=== PATIENT | female | born 1965 | race Caucasian/White ===

== ENCOUNTER 2020-04-27 12:07 | Emergency (ER) | payer OTHER | END 2020-04-27 13:29 | disposition home or self-care (01) | LOC: JVIRT 12:07 | DX: Z03.818 Encounter for observation for suspected exposure to other biological agents ruled out (principal) | CPT/HCPCS: C9803; G2012-GT; U0003 ==

== ENCOUNTER 2020-05-14 12:27 | Emergency (ER) | payer OTHER | END 2020-05-14 14:02 | disposition home or self-care (01) | LOC: JVIRT 12:27 | DX: Z03.818 Encounter for observation for suspected exposure to other biological agents ruled out (principal) | CPT/HCPCS: C9803; Q3014-GT; U0003 ==

== ENCOUNTER 2020-09-15 14:53 | Emergency (ER) | payer OTHER ==
[2020-09-16 10:07] LABS: SARS-CoV-2 NAA Not Detected (Not Detected)
== END 2020-09-15 15:15 | disposition home or self-care (01) ==
LOC: JVIRT 14:53
DX: Z20.822 Contact with and (suspected) exposure to COVID-19 (principal)
CPT/HCPCS: C9803; G2251-GT; Q3014-GT; U0003; U0005